=== PATIENT | male | born 1955 | race Caucasian/White ===

== ENCOUNTER 2018-03-26 09:34 | Day surgery (SDC) | payer OTHER, SELFPAY ==
--- NOTE | 2018-03-25 15:50 | POEE_ITS ---
History of Present Illness Chief Complaint: Progressive decreased vision, left eye Narrative: Patient is a 62-year-old male who presented with complaints of progressive decreased vision in both eyes at both distance and near. He notes significant difficulty with night driving. On examination he was noted to have moderately advanced 3+ yellow nuclear sclerotic cataracts. Best corrected visual acuity was fairly good at 20/25 OD, 20/40 OS. However, he has significant glare disability. The option of cataract surgery was offered to the patient and he wished to proceed. NOTE: The Chief Complaint, HPI, Past Medical History, Past Surgical History, Family History, Social History, Medications, and complete Ophthalmic Exam with detailed Assessment and Plan have already been documented in the patient's outpatient ophthalmic record and are not covered again in detail here. [facility] Medical History Nuclear sclerotic cataract of right eye (Acute) Meds Home Medications Medication Instructions Recorded Confirmed Type amoxicillin 2,000 mg PO PRN PRN 03/24/18 03/24/18 History ibuprofen 800 mg PO TID 03/24/18 03/24/18 History lidocaine 1 patch TOPICAL DAILY 03/24/18 03/24/18 History loratadine 10 mg PO DAILY PRN 03/24/18 03/24/18 History omeprazole 20 mg PO BID 03/24/18 03/25/18 History sildenafil 100 mg PO PRN PRN 03/24/18 03/24/18 History Allergies Allergy/AdvReac Type Severity Reaction Status Date / Time duloxetine Allergy Unknown Verified 03/24/18 14:34 gabapentin Allergy Unknown Verified 03/24/18 14:34 Exam OCULAR EXAM:: Visual acuity at distance: Best corrected 20/25 right eye, 20/40 left eye Pupils: Pupils equal, round, and reactive without afferent pupillary defect IOP: 16 OD, 16 OS Extraocular Motility: Normal Pertinent Slit Lamp Findings: Significant for pupils dilating to 4.5 mm OD, 5 mm OS. There is a corneal scar in the temporal mid periphery of the cornea in the left eye. 3+ yellow nuclear sclerosis is present OU. Dilated Funduscopic Examination: Disc cupping is 0.3 OU with good color. The optic nerves have good perfusion and normal color. The retinal vasculature is normal without significant tortuosity or abnormality. The maculas are normal in appearance with normal contour and foveal reflex appropriate for age. The peripheral retina and vitreous are normal. BRIGHTNESS ACUITY TESTING (BAT):: Off left eye 20/40 Low: 20/50 Medium: 20/60 High: 20/100 Assessment and Plan (1) Nuclear sclerotic cataract of right eye: Current visit: No Status: Acute Assessment: Visually significant cataract, left eye. Plan: Cataract extraction with intraocular lens implantation, left eye Note: NOTE:: The details of the planned surgery, including the risks, indications, limitations,expectations,outcome and possible complications were explained to the patient. The patient understands the complications including, but not limited to: infection, hemorrhage, posterior dislocation of the lens or nuclear fragments which may require the intervention of a vitreoretinal surgeon, possible loss of the eye, or from anesthetic complications. The patient has been made aware of the option of not having surgery, that vision following surgery may not be equal to that prior to surgery, and that the planned surgery may not achieve the intended results. Following this discussion, which the patient appeared to understand, the patient wishes to proceed with cataract surgery with lens implantation of the affected eye to improve and maximize vision.
[2018-03-26 09:29] VITALS: BP 119/77; PULSE 67; RESP 16; TEMP 36.6; O2SAT 95
[2018-03-26] MEDS: Tetracaine 0.5% 4 ML BTL OS ×4 (09:46→10:38)
[2018-03-26] MEDS: Tropicam./Phenyleph. (1/2.5%) 5 ML BTL OS ×3 (09:47→10:25)
[2018-03-26] MEDS: Lidocaine 2% Jelly 6 ML SYR (10:33)
[2018-03-26] MEDS: Lidocaine 1% Pres-Free 5 ML VIAL (10:41)
[2018-03-26] MEDS: Balanced Salt Soln.-PLUS 500 ML BAG (10:41)
[2018-03-26] MEDS: Trypan Blue 0.06% 0.5 ML SYR (10:41)
[2018-03-26] MEDS: Duovisc Viscoelastic System EACH 1 EACH (10:41)
[2018-03-26] MEDS: Povidone-Iodine Ophth 30 ML BTL (10:41)
--- NOTE | 2018-03-26 11:13 | W.PM.DSUDISC ---
Discharge Plan Discharge Details Attending Provider: Claudy Parada Primary Care Provider: Shanice Alonzo Home Meds and New Rx's Prescriptions: No Action amoxicillin 500 mg Capsule 2,000 mg PO PRN PRN (Reason: .one hour prior to dental appt) RF: 0 ibuprofen 800 mg Tablet 800 mg PO TID RF: 0 sildenafil 100 mg Tablet 100 mg PO PRN PRNRF: 0 lidocaine 5 % Adhesive Patch,Medicated 1 patch TOPICAL DAILY RF: 0 omeprazole 20 mg Capsule,Delayed Release(Dr/Ec) 20 mg PO BID RF: 0 loratadine 10 mg Tablet 10 mg PO DAILY PRNRF: 0 Discharge Instructions Stand Alone Forms: Post-op Topical Cataract, Danita Moreno (DSU) DS: Diagnosis Discharge Diagnosis (1) Nuclear sclerotic cataract of right eye: Status: Resolved (2) Status post cataract extraction and insertion of intraocular lens of left eye: Status: Chronic
[2018-03-26 11:30] VITALS: BP 104/76; PULSE 71; RESP 16; TEMP 36.6; O2SAT 92
--- NOTE | 2018-03-26 11:47 | W.PM.OP ---
Date of service: 03/26/18 Time of Service: 11:47 Operative Note DATE OF PROCEDURE: 03/26/18 PRE-OP DIAGNOSIS: Cataract, left eye, with poor red reflex POST-OP DIAGNOSIS: same PROCEDURE: Cataract extraction using phacoemulsification with intraocular lens implant, left eye, using capsular staining with Vision Blue SURGEON: Claudy Parada ANESTHESIA: MAC (with local sub-tenon's anesthetic injection) COMPLICATIONS: None Patient was transported to: same day Patient's condition: stable Implants: Juan Jose and Juan Jose / [employer] Tecnis [id number] Indications: Progressive decreased vision due to cataract, left eye, with poor red reflex Procedure Description: CATARACT SURGERY OPERATIVE REPORT PREOPERATIVE DIAGNOSIS: 1. Dense nuclear cataract, left eye 2. Poor red reflex secondary to #1 POSTOPERATIVE DIAGNOSIS: Same OPERATION: 1. Cataract extraction using phacoemulsification with posterior chamber intraocular lens implant, left eye. 2. Capsular staining with Vision Blue IOL: IOL Site Safety Coordinator/Model: Juan Jose & Juan Jose / TONEY Tecnis [id number] IOL Power: + 22.50 diopters IOL Serial Number: [id number] Optic Diameter: 6.0 mm Haptic/Overall Diameter: 13.0 mm PHACO INFO: Lane [employer] Vision System with OZil and Active Fluidics Cumulative Dispersed Energy (CDE): 25.31 seconds SURGEON: Claudy Parada MD, SANDY ANESTHESIA: Monitored A [place] [facility] Care (MAC), with local sub-tenon's anesthetic infiltration COMPLICATIONS: None SPECIMENS: None INDICATIONS FOR PROCEDURE: Patient is a 62-year-old male with history of progressive decreased vision in both eyes. He was noted to have dense yellow bilateral nuclear cataracts. The option of cataract surgery was offered to the patient and he felt he was symptomatic enough that he wished to proceed. PROCEDURE: The correct surgical eye was identified and marked as the left eye and the pupil was dilated in the preoperative area using mydriatics and cycloplegics. The dilated pupil size was 6.0 mm. Oral sedation was administered in the form of an Imprimis MKO Melt (midazolam 3mg/ketamine 25mg/ondansetron 2mg). The patient was brought to the operating room where cardiopulmonary monitoring was instituted and surgical time-out was performed, confirming the correct operative eye and IOL power. Topical anesthesia was administered and ophthalmic povidone-iodine 5% was instilled into the conjunctival fornices. Lidocaine gel was applied to the cornea and the emeterio-ocular area was prepped with Betadine 10% solution and draped in the usual sterile fashion for intraocular surgery. Steri-strips were used to cover the lashes and lid margins and an adhesive eye drape was placed. Care was taken to isolate the lashes and lid margins under the Steri-strips and adhesive eye drape. A lid speculum was placed between the lids of the operative eye and the Margi-Erendira operating microscope was maneuvered into position. Adalberto scissors were then used to make a conjunctival buttonhole approximately 6mm posterior to the limbus in the inferonasal quadrant. Blunt dissection was carried out to expose bare sclera, and a blunt-tipped sub-tenon?s anesthesia cannula was introduced and passed posteriorly along the globe where non-preserved plain lidocaine was injected into posterior sub-Tenon?s space. A sideport knife was used to make a paracentesis port at the 12:00 position. Air was injected into the anterior chamber, followed by Vision Blue, which was painted over the anterior capsule and then irrigated out using BSS. The anterior chamber was filled with Viscoat. A 2.4mm keratome knife was used to create a half-thickness groove at the limbus and then to construct a three-plane near-clear corneal tunnel extending 2.0mm into clear cornea at the 3:00 position. A flap was raised on the anterior capsule and capsulorhexis forceps were used to complete a continuous curvilinear capsulorhexis of 5.0 mm. Balanced salt solution was then used to perform cortical cleaving hydrodissection and nuclear hydrodelineation until the lens could be freely rotated within the capsular bag. The lens nucleus was then disassembled and removed within the capsular bag and iris plane using phacoemulsification. Residual cortical material was removed using the 45-degree angled silicone I/A tip with 0.3mm port. The posterior capsule was carefully polished to remove as much residual lens epithelial cells as safely possible. The capsular bag was then inflated and the anterior chamber deepened with ProVisc viscoelastic. The lens implant described above was inserted into the capsular bag using the TONEY [place] Injector. A Kuglen hook was used to dial the IOL into position. Residual viscoelastic was then removed first from posterior to the IOL, then from the anterior chamber using the I/A handpiece. The lens implant was noted to center nicely within the capsular bag. The incisions were stromally hydrated, and the anterior chamber was reformed using BSS. Then 0.4cc of moxifloxacin 1.5mg/ml were injected into the capsular bag and anterior chamber. The incisions were checked with a Weck spear and found to be secure. Several drops of ophthalmic povidone-iodine 5% were then applied to the eye followed by two drops of Imprimis combination moxifloxacin/dexamethasone solution. The drapes were removed and a clear plastic protective eye shield was placed over the eye. The patient was then returned to Same Day Surgery in stable condition.
--- NOTE | 2018-03-26 11:51 | ROE_ITS ---
Date of service: 03/26/18 Time of Service: 11:47 Operative Note DATE OF PROCEDURE: 03/26/18 PRE-OP DIAGNOSIS: Cataract, left eye, with poor red reflex POST-OP DIAGNOSIS: same PROCEDURE: Cataract extraction using phacoemulsification with intraocular lens implant, left eye, using capsular staining with Vision Blue SURGEON: Claudy Parada ANESTHESIA: MAC (with local sub-tenon's anesthetic injection) COMPLICATIONS: None Patient was transported to: same day Patient's condition: stable Implants: Juan Jose and Juan Jose / [employer] Tecnis [id number] Indications: Progressive decreased vision due to cataract, left eye, with poor red reflex Procedure Description: CATARACT SURGERY OPERATIVE REPORT PREOPERATIVE DIAGNOSIS: 1. Dense nuclear cataract, left eye 2. Poor red reflex secondary to #1 POSTOPERATIVE DIAGNOSIS: Same OPERATION: 1. Cataract extraction using phacoemulsification with posterior chamber intraocular lens implant, left eye. 2. Capsular staining with Vision Blue IOL: IOL Roving Changer/Model: Juan Jose & Juan Jose / TONEY Tecnis [id number] IOL Power: + 22.50 diopters IOL Serial Number: [id number] Optic Diameter: 6.0 mm Haptic/Overall Diameter: 13.0 mm PHACO INFO: Lane [employer] Vision System with OZil and Active Fluidics Cumulative Dispersed Energy (CDE): 25.31 seconds SURGEON: Claudy Parada MD, SANDY ANESTHESIA: Monitored A [place] hospitalia Care (MAC), with local sub-tenon's anesthetic infiltration COMPLICATIONS: None SPECIMENS: None INDICATIONS FOR PROCEDURE: Patient is a 62-year-old male with history of progressive decreased vision in both eyes. He was noted to have dense yellow bilateral nuclear cataracts. The option of cataract surgery was offered to the patient and he felt he was symptomatic enough that he wished to proceed. PROCEDURE: The correct surgical eye was identified and marked as the left eye and the pupil was dilated in the preoperative area using mydriatics and cycloplegics. The dilated pupil size was 6.0 mm. Oral sedation was administered in the form of an Imprimis MKO Melt (midazolam 3mg/ketamine 25mg/ ondansetron 2mg). The patient was brought to the operating room where cardiopulmonary monitoring was instituted and surgical time-out was performed, confirming the correct operative eye and IOL power. Topical anesthesia was administered and ophthalmic povidone-iodine 5% was instilled into the conjunctival fornices. Lidocaine gel was applied to the cornea and the emeterio-ocular area was prepped with Betadine 10% solution and draped in the usual sterile fashion for intraocular surgery. Steri-strips were used to cover the lashes and lid margins and an adhesive eye drape was placed. Care was taken to isolate the lashes and lid margins under the Steri-strips and adhesive eye drape. A lid speculum was placed between the lids of the operative eye and the Margi-Erendira operating microscope was maneuvered into position. Adalberto scissors were then used to make a conjunctival buttonhole approximately 6mm posterior to the limbus in the inferonasal quadrant. Blunt dissection was carried out to expose bare sclera, and a blunt-tipped sub-tenon? s anesthesia cannula was introduced and passed posteriorly along the globe where non-preserved plain lidocaine was injected into posterior sub-Tenon?s space. A sideport knife was used to make a paracentesis port at the 12:00 position. Air was injected into the anterior chamber, followed by Vision Blue, which was painted over the anterior capsule and then irrigated out using BSS. The anterior chamber was filled with Viscoat. A 2.4mm keratome knife was used to create a half-thickness groove at the limbus and then to construct a three- plane near-clear corneal tunnel extending 2.0mm into clear cornea at the 3:00 position. A flap was raised on the anterior capsule and capsulorhexis forceps were used to complete a continuous curvilinear capsulorhexis of 5.0 mm. Balanced salt solution was then used to perform cortical cleaving hydrodissection and nuclear hydrodelineation until the lens could be freely rotated within the capsular bag. The lens nucleus was then disassembled and removed within the capsular bag and iris plane using phacoemulsification. Residual cortical material was removed using the 45-degree angled silicone I/A tip with 0.3mm port. The posterior capsule was carefully polished to remove as much residual lens epithelial cells as safely possible. The capsular bag was then inflated and the anterior chamber deepened with ProVisc viscoelastic. The lens implant described above was inserted into the capsular bag using the TONEY [place] Injector. A Kuglen hook was used to dial the IOL into position. Residual viscoelastic was then removed first from posterior to the IOL, then from the anterior chamber using the I/A handpiece. The lens implant was noted to center nicely within the capsular bag. The incisions were stromally hydrated , and the anterior chamber was reformed using BSS. Then 0.4cc of moxifloxacin 1.5mg/ml were injected into the capsular bag and anterior chamber. The incisions were checked with a Weck spear and found to be secure. Several drops of ophthalmic povidone-iodine 5% were then applied to the eye followed by two drops of Imprimis combination moxifloxacin/dexamethasone solution. The drapes were removed and a clear plastic protective eye shield was placed over the eye. The patient was then returned to Same Day Surgery in stable condition.
== END 2018-03-26 11:35 | disposition home or self-care (01) ==
PROVIDERS: Visit Provider Ophthalmology
PROC: (CPT 66982; principal; 2018-03-26 11:30)
DX: H25.12 Age-related nuclear cataract, left eye; H35.89 Other specified retinal disorders
CPT/HCPCS: 66982; V2632

== ENCOUNTER 2018-04-09 06:37 | Day surgery (SDC) | payer OTHER, SELFPAY ==
--- NOTE | 2018-04-08 12:44 | POEE_ITS ---
History of Present Illness Chief Complaint: Progressive decreased vision, right eye Narrative: The patient is a 62-year-old male with history of progressive decreased vision in both eyes at both distance and near. He noted significant difficulty with glare from headlights. On examination he was noted to have mod erately advanced bilateral nuclear cataracts. He was significantly symptomatic that he desired cataract surgery which was performed OS on 03/26/2018. Postoperatively he has regained uncorrected vision of 20/25 in the left eye. He now presents for cataract surgery in the right eye. NOTE: The Chief Complaint, HPI, Past Medical History, Past Surgical History, Family History, Social History, Medications, and complete Ophthalmic Exam with detailed Assessment and Plan have already been documented in the patient's outpatient ophthalmic record and are not covered again in detail here. PFSH Nuclear sclerotic cataract of right eye (Acute) Nuclear sclerotic cataract of right eye (Resolved) Status post cataract extraction and insertion of intraocular lens of left eye (Chronic 03/26/18) Medical History Nuclear sclerotic cataract of right eye (Acute) Nuclear sclerotic cataract of right eye (Resolved) Social History Smoking/Tobacco Use Status: Never Surgical History Status post cataract extraction and insertion of intraocular lens of left eye (Chronic 03/26/18) Social History Smoking/Tobacco Use Status: Never Meds Home Medications Medication Instructions Recorded Confirmed Type amoxicillin 2,000 mg PO PRN PRN 03/24/18 03/26/18 History ibuprofen 800 mg PO TID 03/24/18 03/26/18 History lidocaine 1 patch TOPICAL DAILY 03/24/18 03/26/18 History loratadine 10 mg PO DAILY PRN 03/24/18 03/26/18 History omeprazole 20 mg PO BID 03/24/18 03/26/18 History sildenafil 100 mg PO PRN PRN 03/24/18 03/26/18 History Allergies Allergy/AdvReac Type Severity Reaction Status Date / Time duloxetine Allergy Unknown Verified 03/24/18 14:34 gabapentin Allergy Unknown Verified 03/24/18 14:34 Exam OCULAR EXAM:: Most recent ocular examination is significant for corrected visual acuity of 20/25 right eye, 20/20 left eye. Pupils equal, round, and reactive without afferent pupillary defect intraocular pressure is 16 in each eye. Extraocular motility is normal. Slit-lamp examination is significant for pupils dilating to 4.5 mm OD. 5 mm OS. 3+ yellow nuclear cataract OD. Well- positioned PCIOL OS with clear posterior capsule. Funduscopic examination is significant for disc cupping of 0.3 OU with good color. The optic nerves have good perfusion and normal color. The retinal vasculature is normal without significant tortuosity or abnormality. The maculas are normal in appearance with normal contour and foveal reflex appropriate for age. The peripheral retina and vitreous are normal. BRIGHTNESS ACUITY TESTING (BAT):: acuity testing of the right eye of 20/25. Low 20/40. Medium 20/50. I 20/80. Assessment and Plan (1) Nuclear sclerotic cataract of right eye: Current visit: No Status: Acute Assessment: Visually significant cataract, right eye. Plan: Cataract extraction with intraocular lens implantation, right eye Note: NOTE:: The details of the planned surgery, including the risks, indications,limitations,expectations,outcome and possible complications were explained to the patient. The patient understands the complications including, but not limited to: infection, hemorrhage, posterior dislocation of the lens or nuclear fragments which may require the intervention of a vitreoretinal surgeon, possible loss of the eye, or from anesthetic complications. The patient has been made aware of the option of not having surgery, that vision following surgery may not be equal to that prior to surgery, and that the planned surgery may not achieve the intended results. Following this discussion, which the patient appeared to understand, the patient wishes to proceed with cataract surgery with lens implantation of the affected eye to improve and maximize vision.
--- NOTE | 2018-04-08 12:46 | POEE_ITS ---
History of Present Illness Chief Complaint: Progressive decreased vision, left eye Narrative: NOTE: The Chief Complaint, HPI, Past Medical History, Past Surgical History, Family History, Social History, Medications, and complete Ophthalmic Exam with detailed Assessment and Plan have already been documented in the patient's outpatient ophthalmic record and are not covered again in detail here. PFSH Nuclear sclerotic cataract of right eye (Acute) Nuclear sclerotic cataract of right eye (Resolved) Status post cataract extraction and insertion of intraocular lens of left eye (Chronic 03/26/18) Medical History Nuclear sclerotic cataract of right eye (Acute) Nuclear sclerotic cataract of right eye (Resolved) Social History Smoking/Tobacco Use Status: Never Surgical History Status post cataract extraction and insertion of intraocular lens of left eye (Chronic 03/26/18) Social History Smoking/Tobacco Use Status: Never Meds Home Medications Medication Instructions Recorded Confirmed Type amoxicillin 2,000 mg PO PRN PRN 03/24/18 03/26/18 History ibuprofen 800 mg PO TID 03/24/18 03/26/18 History lidocaine 1 patch TOPICAL DAILY 03/24/18 03/26/18 History loratadine 10 mg PO DAILY PRN 03/24/18 03/26/18 History omeprazole 20 mg PO BID 03/24/18 03/26/18 History sildenafil 100 mg PO PRN PRN 03/24/18 03/26/18 History Allergies Allergy/AdvReac Type Severity Reaction Status Date / Time duloxetine Allergy Unknown Verified 03/24/18 14:34 gabapentin Allergy Unknown Verified 03/24/18 14:34 Note: NOTE:: The details of the planned surgery, including the risks, indications,limitations,expectations,outcome and possible complications were explained to the patient. The patient understands the complications including, but not limited to: infection, hemorrhage, posterior dislocation of the lens or nuclear fragments which may require the intervention of a vitreoretinal surgeon, possible loss of the eye, or from anesthetic complications. The patient has been made aware of the option of not having surgery, that vision following surgery may not be equal to that prior to surgery, and that the planned surgery may not achieve the intended results. Following this discussion, which the patient appeared to understand, the patient wishes to proceed with cataract surgery with lens implantation of the affected eye to improve and maximize vision.
[2018-04-09 07:08] VITALS: BP 132/83; PULSE 66; RESP 16; TEMP 35.7; O2SAT 96
[2018-04-09] MEDS: Tropicam./Phenyleph. (1/2.5%) 5 ML BTL OD ×3 (07:15→07:24)
[2018-04-09] MEDS: Tetracaine 0.5% 4 ML BTL OD ×4 (07:15→08:22)
[2018-04-09] MEDS: Povidone-Iodine Ophth 30 ML BTL (08:22)
[2018-04-09] MEDS: Trypan Blue 0.06% 0.5 ML SYR (08:22)
[2018-04-09] MEDS: Lidocaine 2% Jelly 6 ML SYR (08:22)
[2018-04-09] MEDS: Balanced Salt Soln.-PLUS 500 ML BAG (08:24)
[2018-04-09] MEDS: Lidocaine 1% Pres-Free 5 ML VIAL (08:24)
[2018-04-09] MEDS: Duovisc Viscoelastic System EACH 1 EACH (08:28)
--- NOTE | 2018-04-09 08:53 | W.PM.DSUDISC ---
Discharge Plan Discharge Details Attending Provider: Claudy Parada Primary Care Provider: Shanice Alonzo Home Meds and New Rx's Prescriptions: No Action amoxicillin 500 mg Capsule 2,000 mg PO PRN PRN (Reason: .one hour prior to dental appt) RF: 0 ibuprofen 800 mg Tablet 800 mg PO TID RF: 0 sildenafil 100 mg Tablet 100 mg PO PRN PRNRF: 0 lidocaine 5 % Adhesive Patch,Medicated 1 patch TOPICAL DAILY RF: 0 omeprazole 20 mg Capsule,Delayed Release(Dr/Ec) 20 mg PO BID RF: 0 loratadine 10 mg Tablet 10 mg PO DAILY PRNRF: 0 Discharge Instructions Stand Alone Forms: Post-op Topical Cataract, Danita Moreno (DSU) DS: Diagnosis Discharge Diagnosis (1) Status post cataract extraction and insertion of intraocular lens of right eye: Status: Chronic
--- NOTE | 2018-04-09 08:54 | W.PM.OP ---
Date of service: 04/09/18 Time of Service: 08:54 Operative Note DATE OF PROCEDURE: 04/09/18 PRE-OP DIAGNOSIS: Cataract with poor red reflex and poorly dilating pupil, right eye POST-OP DIAGNOSIS: same PROCEDURE: Cataract extraction using phacoemulsification with intraocular lens implant, right eye, with pupillary dilation using Malyugin Ring and capsular staining using Vision Blue SURGEON: Claudy Parada ANESTHESIA: MAC (with sub-tenon's local infiltration) ESTIMATED BLOOD LOSS: 0 PATHOLOGY: none sent COMPLICATIONS: None Patient was transported to: same day Patient's condition: stable Implants: [employer] Tecnis [id number] Indications: Progressive decreased vision due to cataract, right eye Procedure Description: CATARACT SURGERY OPERATIVE REPORT PREOPERATIVE DIAGNOSIS: 1. Dense nuclear cataract, right eye 2. Poorly dilating pupil, right eye 3. Poor red reflex, right eye POSTOPERATIVE DIAGNOSIS: Same OPERATION: 1. Cataract extraction using phacoemulsification with posterior chamber intraocular lens implant, right eye. 2. Pupillary dilation and iris stabilization using Malyugin Ring 3. Capsular staining with VIsion Blue IOL: IOL Plant Senior Manager/Model: [employer] & Juan [employer] / TONEY Tecnis [id number] IOL Power: + 23.50 diopters IOL Serial Number: [id number] Optic Diameter: 6.0mm Haptic/Overall Diameter: 13.0mm PHACO INFO: Lane [employer] Vision System with OZil and Active [employer]uidics Cumulative Dispersed Energy (CDE): 13.57 seconds SURGEON: Claudy Parada MD, SANDY ANESTHESIA: Monitored Anesthesia Care (MAC), with local sub-tenon's anesthetic infiltration COMPLICATIONS: None SPECIMENS: None INDICATIONS FOR PROCEDURE: The patient is a 62-year-old male with history of progressive decreased vision in both eyes who was noted to have dense bilateral nuclear cataracts. He has already undergone cataract surgery in his left eye on 03/26/2018 and is doing well postoperatively. He now presents for cataract surgery of the right eye. PROCEDURE: The correct surgical eye was identified and marked as the right eye and the pupil was dilated in the preoperative area using mydriatics, cycloplegics, and NSAIDS (except in aspirin allergic patients). The dilated pupil size was 5.0 mm. Oral sedation was administered in the form of an Imprimis MKO Melt (midazolam 3mg/ketamine 25mg/ondansetron 2mg). The patient was brought to the operating room where cardiopulmonary monitoring was instituted and surgical time-out was performed, confirming the correct operative eye and IOL power. Topical anesthesia was administered and ophthalmic povidone-iodine 5% was instilled into the conjunctival fornices. Lidocaine gel was applied to the cornea and the emeterio-ocular area was prepped with Betadine 10% solution and draped in the usual sterile fashion for intraocular surgery, including an aperture drape. A Tegaderm transparent film dressing was cut in half and used to cover the lashes and lid margins. Care was taken to sequester the lashes and lid margins under the Tegaderm dressing. A lid speculum was placed between the lids of the operative eye and the Margi-Erendira operating microscope was maneuvered into position. Adalberto scissors were then used to make a conjunctival buttonhole approximately 6mm posterior to the limbus in the inferonasal quadrant. Blunt dissection was carried out to expose bare sclera, and a blunt-tipped sub-tenon?s anesthesia cannula was introduced and passed posteriorly along the globe where non-preserved plain lidocaine was injected into posterior sub-Tenon?s space. A sideport knife was used to make a paracentesis port inferiortemporally and air was injected into anterior chamber, followed by Vision Blue, which was painted over the anterior capsule and then irrigated out with BSS. The anterior chamber was then filled with Viscoat. A 2.4mm keratome knife was used to create a half-thickness groove at the limbus and then to construct a three-plane near-clear corneal tunnel extending 2.0mm into clear cornea superiortemporally. A 7.0 mm Malyugin Ring was then inserted into the pupillary space and engaged with the Kuglen hook. A flap was raised on the anterior capsule and capsulorhexis forceps were used to complete a continuous curvilinear capsulorhexis of 5.0 mm. Balanced salt solution was then used to perform cortical cleaving hydrodissection and nuclear hydrodelineation until the lens could be freely rotated within the capsular bag. The lens nucleus was then disassembled and removed within the capsular bag and iris plane using phacoemulsification. Residual cortical material was removed using the 45-degree angled silicone I/A tip with 0.3mm port. The posterior capsule was carefully polished to remove as much residual lens epithelial cells as safely possible. The capsular bag was then inflated and the anterior chamber deepened with Provisc. The lens implant described above was inserted into the capsular bag using the TONEY [employer] Injector. A Kuglen hook was used to dial the IOL into position. The Malyugin Ring was removed in the reverse order of its insertion. Residual viscoelastic was then removed first from posterior to the IOL, then from the anterior chamber using the I/A handpiece. The lens implant was noted to center nicely within the capsular bag. The incisions were stromally hydrated, and the anterior chamber was reformed using BSS. Then 0.4cc of moxifloxacin 1.5mg/ml were injected into the capsular bag and anterior chamber. The incisions were checked with a Weck spear and found to be secure. Several drops of ophthalmic povidone-iodine 5% were then applied to the eye followed by two drops of Imprimis combination moxifloxacin/dexamethasone solution. The drapes were removed and a clear plastic protective eye shield was placed over the eye. The patient was then returned to [facility] in stable condition.
[2018-04-09 09:15] VITALS: BP 117/81; PULSE 67; RESP 18; TEMP 35.9; O2SAT 94
== END 2018-04-09 09:20 | disposition home or self-care (01) ==
PROVIDERS: Visit Provider Ophthalmology
PROC: (CPT 66982; principal; 2018-04-09 08:15)
DX: H25.11 Age-related nuclear cataract, right eye (principal); H57.09 Other anomalies of pupillary function; H35.89 Other specified retinal disorders; K21.9 Gastro-esophageal reflux disease without esophagitis
CPT/HCPCS: 66982; V2632